=== PATIENT | male | born 2000 | race Caucasian/White ===

== ENCOUNTER 2023-10-19 13:41 | Emergency (ER) | payer OTHER ==
[~2023-10-19] VITALS: Ht 188 cm; Wt 86.2 kg
[2023-10-19 13:42] VITALS: BP 138/92; TEMP 98.1; O2SAT 98
== END 2023-10-19 16:01 | disposition home or self-care (01) ==
LOC: M ED 13:41
DX: Z04.6 Encounter for general psychiatric examination, requested by authority (principal); F17.200 Nicotine dependence, unspecified, uncomplicated